=== PATIENT | female | born 1990 | race Caucasian/White ===

== ENCOUNTER 2019-11-19 17:20 | Inpatient (IN) | payer MEDICAID ==
[~2019-11-19] VITALS: Ht 158.8 cm; Wt 118.8 kg
[2019-11-19] MEDS ORDERED: OMEPRAZOLE20 M1 PO (20:29)
[2019-11-19] MEDS ORDERED: MINIPRESS1 MG PO (20:31)
[2019-11-19] MEDS ORDERED: FERROUS SULFAT325 MG PO (20:32)
[2019-11-19] MEDS ORDERED: PRENAVITE1 TAB PO (20:32)
[2019-11-19 21:19] VITALS: BP 124/74; Ht 158.8 cm; Wt 118.8 kg
[2019-11-19 22:23] LABS: HEMATOCRIT 35.1 % (36.0-48.0); HEMOGLOBIN 11.7 g/dL (12-16); MCH 28.1 pg (26.0-34.0); MCHC 33.3 g/dL (31.0-37.0); MCV 84.4 fL (80.0-100.0); MEAN PLATELET VOLUME 10.3 fL (7.4-10.4); RBC 4.16 10x6/uL (4.00-5.40); RDW 13.9 % (11.5-14.5); WBC 12.4 10x3/uL (4.8-10.8)
[2019-11-19 22:41] LABS: UDS - AMPHET NEGATIVE QUAL (NEGATIVE); UDS - BARB NEGATIVE QUAL (NEGATIVE); UDS - BENZO NEGATIVE QUAL (NEGATIVE); UDS - COCAINE NEGATIVE QUAL (NEGATIVE); UDS - OPIATE NEGATIVE QUAL (NEGATIVE); UDS - PCP NEGATIVE QUAL (NEGATIVE); UDS - THC NEGATIVE QUAL (NEGATIVE)
[2019-11-21 06:11] LABS: RAPID PLASMA REAGIN Non Reactive (Non Reactive)
--- NOTE | 2019-11-21 13:15 | NUR ---
RATES PAIN IN HER BACK AND HIPS AT 7/10, MEDS GIVEN SCANNED TO EMAR. PT UNDERSTANDS THAT WHEN SHE GETS UP TO VOID NEXT SHE CAN THEN GET INTO THE SHOWER. NO OTHER NEEDS VOICED AT THIS TIME. CALL LIGHT IN REACH.
--- NOTE | 2019-11-21 14:19 | NUR ---
RATES PAIN AT 3/10. UP TO VOID PER SELF WITHOUT COMPLAINTS. IV COVERED, TOWELS PLACED IN BATHROOM. REASSURED PT THAT WAS OK FOR HER TO DRESS IN HER OWN CLOTHING AFTER HER SHOWER. UNDERSTANDS USE OF EMERGENCY CALL LIGHT, SPOUSE REMAINING IN ROOM WHILE SHE SHOWERS.
--- NOTE | 2019-11-21 14:46 | NUR ---
PT OUT OF SHOWER AND DRESSED IN HER OWN CLOTHING, RATES PAIN AT 3/10. SALINE LOCK REMOVED PER HER REQUEST AND COMPLAINT OF ITCHING/TENDERNESS AT SITE. NO SWELLING OR REDNESS NOTED. REMOVED WITHOUT COMPLAINT AND CATH NOTED TO BE INTACT.
--- NOTE | 2019-11-21 15:30 | NUR ---
PT AND SPOUSE AMB IN HALLS, NO SIGNS OF DISTRESS NOTED.
--- NOTE | 2019-11-21 15:50 | NUR ---
BACK TO UNIT, PT AMB TO DESK ASKING TO BE TAKEN TO NBN SO THAT SHE CAN GET , BACK TO ROOM WITH IN CRIB.
--- NOTE | 2019-11-21 17:03 | NUR ---
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
--- NOTE | 2019-11-21 18:15 | NUR ---
PT TRANSFERRED TO ROOM 1278, DENIES NEEDS AT THIS TIME.
--- NOTE | 2019-11-21 19:15 | NUR ---
PT UP AMBULATING IN HALLWAY WITH S/O.DENIES ANY NEEDS OR COMPLAINTS. IN NSY.
--- NOTE | 2019-11-21 19:45 | NUR ---
assessment complete and documented. k-pad started for pt c/o back and hip pain.
[2019-11-21 19:48] VITALS: BP 147/79
--- NOTE | 2019-11-21 23:00 | NUR ---
pt resting quietly in bed with s/o. denies any complaints
--- NOTE | 2019-11-22 01:15 | NUR ---
pt resting quietly with eyes closed. s/o at bedside. in nsy
--- NOTE | 2019-11-22 03:00 | NUR ---
pt continues to rest quietly with eyes closed. no distress noted.
--- NOTE | 2019-11-22 05:30 | NUR ---
pt continues to rest quietly with eyes closed no changes throughout shift.
--- NOTE | 2019-11-22 07:18 | NUR ---
pt. up in shower as requested. bed linens changed.
[2019-11-22 07:47] LABS: HEMATOCRIT 28.1 % (36.0-48.0); HEMOGLOBIN 9.1 g/dL (12-16); MCH 27.6 pg (26.0-34.0); MCHC 32.4 g/dL (31.0-37.0); MCV 85.2 fL (80.0-100.0); MEAN PLATELET VOLUME 10.4 fL (7.4-10.4); PLATELET COUNT 211 10x3/uL (130-400); WBC 14.1 10x3/uL (4.8-10.8)
[2019-11-22 08:33] LABS: EOSINOPHILS 5 % (0-7); LYMPHOCYTES 24 % (15-50); MONOCYTES 4 % (2-11); NEUTROPHILS 63 % (40-80); PLATELET ESTIMATE NORMAL
--- NOTE | 2019-11-22 11:45 | NUR ---
DISCHARGE INSTRUCTIONS PROVIDED VERBALLY AND WRITTEN. POST INSTRUCTIONS AND APPOINTMENT FOLLOW UP TIME PROVIDED FROM [facility]. PT. VERBALIZES UNDERSTANDING OF INSTRUCTIONS AND DENIES FURTHER QUESTIONS OR CONCERNS AT THIS TIME. PT. REPORTS "IM WAITING ON MY RIDE TO GET HERE" WHEN INSTRUCTED TO LET ME KNOW WHEN SHE IS READY TO GO AND I WILL TAKE THEM OUT.
--- NOTE | 2019-11-22 12:56 | NUR ---
PT. DISCHARGED VIA WC WITH SIGNIFICANT OTHER CARRYING IN [facility].
== END 2019-11-22 12:56 | disposition home or self-care (01) | DRG 807 ==
LOC: D.LD 17:20
PROVIDERS: ADMIT Obstetrics & Gynecology; ATTEND Obstetrics & Gynecology
PROC: 10907ZC Drainage of Amniotic Fluid, Therapeutic from Products of Conception, Via Natural or Artificial Opening (ICD-10-PCS; 2019-11-20)
PROC: 3E033VJ Introduction of Other Hormone into Peripheral Vein, Percutaneous Approach (ICD-10-PCS; 2019-11-20)
PROC: 10E0XZZ Delivery of Products of Conception, External Approach (ICD-10-PCS; principal; 2019-11-21)
DX: O99.334 Smoking (tobacco) complicating childbirth (principal); Z37.0 Single live birth; F17.200 Nicotine dependence, unspecified, uncomplicated; Z3A.39 39 weeks gestation of pregnancy; O70.0 First degree perineal laceration during delivery; O69.81X0 Labor and delivery complicated by cord around neck, without compression, not applicable or unspecified